=== PATIENT | male | born 1985 | race Caucasian/White ===

== ENCOUNTER 2021-12-29 19:59 | Inpatient (IN) | payer MEDICAID ==
[~2021-12-29] VITALS: Ht 185.4 cm; Wt 86.2 kg
[2021-12-29] MEDS ORDERED: LEVETIRACETAM 1000MG PREMIX 100 ML IV ONE (23:15)
[2021-12-29] MEDS ORDERED: TETANUS, DIPHTHERIA, PERTUSSIS VAC/PF 0.5ML (>10YR OLD) IM ONE (23:30)
[2021-12-29 23:46] LABS: BASOPHILS % 0.5 % (0.0-2.0); EOSINOPHILS % 0.4 % (0.0-5.0); HEMATOCRIT. 39.2 % (42.0-52.0); HEMOGLOBIN. 13.6 g/dL (14.0-18.0); LYMPHOCYTES % 24.1 % (20.0-50.0); MEAN CORPUSCULAR HEMOGLOBIN 30.1 pg (28.0-32.0); MEAN CORPUSCULAR VOLUME 86.8 fL (80.0-94.0); MEAN PLATELET VOLUME 7.9 fl (7.4-10.4); MONOCYTES % 5.6 % (2.0-8.0); NEUTROPHILS % 69.4 % (40.0-76.0); PLATELET 259 x1000/uL (130-400); RED BLOOD CELL COUNT 4.52 mill/uL (4.7-6.1); RED CELL DISTRIBUTION WIDTH 11.9 % (11.6-14.6)
[2021-12-30 00:27] LABS: CHLORIDE 102 mEq/L (98-107)
[2021-12-30] MEDS ORDERED: MIDAZOLAM HCL 2 MG/2 ML VIAL IV NR (04:00)
[2021-12-30] MEDS ORDERED: SODIUM CHLORIDE 0.9% 1,000 ML IV ONE (04:00)
[2021-12-30 09:40] VITALS: BP 135/94
[2021-12-30] MEDS ORDERED: IPRATROPIUM/ALBUTEROL 0.5-3(2.5)MG/3ML NEB NEB PRN (10:00)
[2021-12-30] MEDS ORDERED: ZOLPIDEM TARTRATE 5MG TABLET PO PRN (10:00)
[2021-12-30] MEDS ORDERED: GUAIFENESIN 200MG/10ML SUGAR FREE UDC PO PRN (10:00)
[2021-12-30] MEDS ORDERED: DOCUSATE SODIUM 100MG CAPSULE PO PRN (10:00)
[2021-12-30] MEDS ORDERED: MAGNESIUM/ALUMINUM HYDROXIDE/SIMETHICONE 30ML UDC PO PRN (10:00)
[2021-12-30] MEDS ORDERED: LORAZEPAM 2MG/ML CPJ IV PRN (10:00)
[2021-12-30] MEDS ORDERED: CLONIDINE 0.1MG TABLET PO PRN (10:00)
[2021-12-30] MEDS ORDERED: NITROGLYCERIN 0.4MG TABLET SL SL PRN (10:00)
[2021-12-30] MEDS ORDERED: ONDANSETRON HCL 4MG/2ML INJ IV PRN (10:00)
[2021-12-30] MEDS ORDERED: KETOROLAC 30MG/ML VIAL IV PRN (10:00)
[2021-12-30] MEDS ORDERED: ACETAMINOPHEN 325MG TABLET PO PRN ×2 (10:00)
[2021-12-30] MEDS: ENOXAPARIN 40MG/0.4ML SYR SUBCUT SCH (10:27)
[2021-12-30 12:00] VITALS: BP 130/85
[2021-12-30 16:00] VITALS: BP 110/75
[2021-12-30 18:12] LABS: ETHANOL BLOOD < 10 mg/dL; T4 FREE 0.82 ng/dL (0.76-1.46); TOTAL IRON BINDING CAPACITY 213 ug/dL (250-450)
[2021-12-30 18:27] LABS: VITAMIN B12 SERUM 196 pg/mL (211-911)
[2021-12-30] MEDS ORDERED: LEVE750T4 PO (19:16)
[2021-12-30 20:00] VITALS: BP 115/72
[2021-12-30 20:14] LABS: *AMPHETAMINES SCREEN URINE NEGATIVE (NEGATIVE); *BARBITURATES SCREEN URINE NEGATIVE (NEGATIVE); *BENZODIAZEPINES SCREEN URINE PRESUMTIVE POSITIVE (NEGATIVE); CANNABINOID URINE SCREEN NEGATIVE (NEGATIVE); METHADONE URINE SCREEN NEGATIVE (NEGATIVE); OPIATES URINE SCREEN NEGATIVE (NEGATIVE); PHENCYCLIDINE URINE SCREEN NEGATIVE (NEGATIVE)
[2021-12-30] MEDS: FAMOTIDINE 20MG TABLET PO SCH (20:51)
[2021-12-30] MEDS: LEVETIRACETAM 500MG/5ML CUP PO SCH (20:56)
[2021-12-30 21:34] LABS: *COCAINE SCREEN URINE PRESUMTIVE POSITIVE (NEGATIVE)
[2021-12-31] VITALS: BP 120/74
[2021-12-31 04:00] VITALS: BP 115/73
[2021-12-31 06:46] LABS: BASOPHILS % 0.5 % (0.0-2.0); EOSINOPHILS % 0.8 % (0.0-5.0); HEMATOCRIT. 38.6 % (42.0-52.0); HEMOGLOBIN. 13.5 g/dL (14.0-18.0); LYMPHOCYTES % 35.5 % (20.0-50.0); MEAN CORPUSCULAR HEMOGLOBIN 30.3 pg (28.0-32.0); MEAN PLATELET VOLUME 8.3 fl (7.4-10.4); MONOCYTES % 8.1 % (2.0-8.0); NEUTROPHILS % 55.1 % (40.0-76.0); PLATELET 241 x1000/uL (130-400); RED BLOOD CELL COUNT 4.44 mill/uL (4.7-6.1); RED CELL DISTRIBUTION WIDTH 11.6 % (11.6-14.6)
[2021-12-31 07:27] LABS: CHLORIDE 102 mEq/L (98-107)
[2021-12-31 07:50] LABS: PHOSPHORUS 3.7 mg/dL (2.5-4.9)
[2021-12-31 08:00] VITALS: BP 114/74
[2021-12-31] MEDS: LEVETIRACETAM 500MG/5ML CUP PO SCH (09:49)
[2021-12-31] MEDS: FAMOTIDINE 20MG TABLET PO SCH ×2 (09:51→21:00)
[2021-12-31] MEDS: ENOXAPARIN 40MG/0.4ML SYR SUBCUT SCH (09:51)
[2021-12-31 12:00] VITALS: BP 115/68
[2021-12-31] MEDS: LEVETIRACETAM 500MG TABLET PO SCH (19:33)
[2021-12-31 20:00] VITALS: BP 111/68
[2022-01-01] VITALS (7 sets, daily range): BP systolic 105–142; BP diastolic 65–86
[2022-01-01] MEDS: FAMOTIDINE 20MG TABLET PO SCH (09:01)
[2022-01-01] MEDS: LEVETIRACETAM 500MG TABLET PO SCH ×2 (09:01→17:23)
[2022-01-01] MEDS: ENOXAPARIN 40MG/0.4ML SYR SUBCUT SCH (10:00)
[2022-01-01] MEDS ORDERED: KEPP500 PO (11:04)
== END 2022-01-01 21:00 | disposition home or self-care (01) | DRG 53 ==
LOC: ER 19:59 → 7WST 12-30 05:34 → EDBEDREQ 12-30 06:39 → EDBEDREQTM 12-30 06:39 → ENRESERV 12-30 06:57
PROVIDERS: ADMIT Internal Medicine; ATTEND Internal Medicine
PROC: 0HQ0XZZ Repair Scalp Skin, External Approach (ICD-10-PCS; principal; 2021-12-30)
DX: G40.909 Epilepsy, unspecified, not intractable, without status epilepticus (principal); G92.8 Other toxic encephalopathy; D63.8 Anemia in other chronic diseases classified elsewhere; S01.01XA Laceration without foreign body of scalp, initial encounter; X58.XXXA Exposure to other specified factors, initial encounter; Z79.899 Other long term (current) drug therapy; Y93.89 Activity, other specified; Y92.89 Other specified places as the place of occurrence of the external cause; Y99.8 Other external cause status
CPT/HCPCS: 36415; 70551; 80053; 80185; 80305; 80320; 82607; 82746; 83540; 83550; 83735; 84100; 84439; 84443; 85025; 90715; 93005; 93970; 99285; J1650; J1953; J2250; G0480

== ENCOUNTER 2022-01-06 10:17 | Emergency (ER) | payer MEDICAID ==
[~2022-01-06] VITALS: Ht 185.4 cm; Wt 84.0 kg
[~2022-01-06 10:17] MED LIST: KEPP500 PO
[2022-01-06 11:08] VITALS: BP 126/75
== END 2022-01-06 11:09 | disposition home or self-care (01) ==
LOC: ER 10:17
DX: Z48.02 Encounter for removal of sutures (principal); R56.9 Unspecified convulsions; Z00.00 Encounter for general adult medical examination without abnormal findings; F15.10 Other stimulant abuse, uncomplicated
CPT/HCPCS: 99281; Z7610

== ENCOUNTER 2024-11-27 15:27 | Emergency (ER) | payer SELFPAY ==
[~2024-11-27] VITALS: Ht 175.3 cm; Wt 73.0 kg
[2024-11-27 15:34] VITALS: TEMP 36.6; O2SAT 98
[2024-11-27] MEDS: HALOPERIDOL LACTATE 5MG/ML VIAL IM ONE (16:30)
[2024-11-27 16:42] LABS: BASOPHILS % 0.6 % (0.0-2.0); EOSINOPHILS % 0.1 % (0.0-5.0); HEMATOCRIT. 38.5 % (42.0-52.0); HEMOGLOBIN. 13.1 g/dL (14.0-18.0); LYMPHOCYTES % 24.7 % (20.0-50.0); MEAN PLATELET VOLUME 8.6 fl (7.4-10.4); MONOCYTES % 8.9 % (2.0-8.0); NEUTROPHILS % 65.7 % (40.0-76.0); PLATELET 194 x1000/uL (130-400); RED BLOOD CELL COUNT 4.33 mill/uL (4.7-6.1); RED CELL DISTRIBUTION WIDTH 13.0 % (11.6-14.6)
[2024-11-27 16:57] LABS: CREATININE 1.0 mg/dL (0.6-1.3)
[2024-11-27 16:58] LABS: UREA NITROGEN BLOOD 22 mg/dL (9-23)
[2024-11-27 16:59] LABS: ASPARTATE AMINOTRANSFERASE 52 IU/L (<34)
[2024-11-27 17:00] LABS: BILIRUBIN DIRECT 0.5 mg/dL (<=3.0); BILIRUBIN TOTAL 1.7 mg/dL (0.1-1.0); PROTEIN TOTAL 8.0 g/dL (6.0-8.3)
[2024-11-27] MEDS: SODIUM CHLORIDE 0.9% 1,000 ML IV ONE ×2 (18:45)
[2024-11-27 20:41] VITALS: BP 115/74; PULSE 67; RESP 13; O2SAT 100
== END 2024-11-27 20:54 | disposition home or self-care (01) ==
LOC: ER 15:27
DX: G93.40 Encephalopathy, unspecified (principal); M62.82 Rhabdomyolysis; I46.9 Cardiac arrest, cause unspecified; Z79.899 Other long term (current) drug therapy
CPT/HCPCS: 80076; 80048; 80320; 82140; 82550; 85025; 36415; 70450; 96372; 99285; J1630; J7030; G0480

== ENCOUNTER 2024-12-26 08:16 | Emergency (ER) | payer OTHER ==
[~2024-12-26] VITALS: Ht 175.3 cm; Wt 75.0 kg
[2024-12-26 08:17] VITALS: O2SAT 100
[2024-12-26] MEDS: LEVETIRACETAM 1000MG PREMIX 100 ML IV ONE (09:01)
[2024-12-26 09:25] LABS: BASOPHILS % 0.2 % (0.0-2.0); EOSINOPHILS % 0.8 % (0.0-5.0); HEMATOCRIT. 43.7 % (42.0-52.0); HEMOGLOBIN. 14.7 g/dL (14.0-18.0); LYMPHOCYTES % 25.7 % (20.0-50.0); MEAN PLATELET VOLUME 8.8 fl (7.4-10.4); MONOCYTES % 6.2 % (2.0-8.0); NEUTROPHILS % 67.1 % (40.0-76.0); PLATELET 196 x1000/uL (130-400); RED BLOOD CELL COUNT 4.95 mill/uL (4.7-6.1); RED CELL DISTRIBUTION WIDTH 13.0 % (11.6-14.6)
[2024-12-26 09:41] LABS: CREATININE 0.8 mg/dL (0.6-1.3); UREA NITROGEN BLOOD 11 mg/dL (9-23)
[2024-12-26 09:42] LABS: ETHANOL BLOOD < 10 mg/dL (<10)
[2024-12-26 13:08] VITALS: BP 123/85; PULSE 73; RESP 16; TEMP 37; O2SAT 99
== END 2024-12-26 13:35 | disposition short-term general hospital (02) ==
LOC: ER 08:16 → CMPBEDREQ 14:14
DX: R56.9 Unspecified convulsions (principal); Z79.899 Other long term (current) drug therapy
CPT/HCPCS: 80048; 80320; 85025; 36415; 70450; 93005; 96374; 99285; J1953; Z7610; 82542; A4606; G0480

== ENCOUNTER 2025-01-14 13:17 | Emergency (ER) | payer OTHER ==
[~2025-01-14] VITALS: Ht 170.2 cm; Wt 80.0 kg
[2025-01-14 13:19] VITALS: O2SAT 99
[2025-01-14] MEDS: ACETAMINOPHEN 325MG TABLET PO ONE (13:45)
[2025-01-14] MEDS: LEVETIRACETAM 1000MG PREMIX 100 ML IV ONE (14:09)
[2025-01-14 16:43] LABS: BASOPHILS % 1.0 % (0.0-2.0); CREATININE 0.8 mg/dL (0.6-1.3); EOSINOPHILS % 0.7 % (0.0-5.0); HEMATOCRIT. 41.6 % (42.0-52.0); HEMOGLOBIN. 14.2 g/dL (14.0-18.0); LYMPHOCYTES % 35.1 % (20.0-50.0); MEAN PLATELET VOLUME 9.8 fl (7.4-10.4); MONOCYTES % 5.9 % (2.0-8.0); NEUTROPHILS % 57.3 % (40.0-76.0); PLATELET 190 x1000/uL (130-400); RED BLOOD CELL COUNT 4.68 mill/uL (4.7-6.1); RED CELL DISTRIBUTION WIDTH 12.1 % (11.6-14.6)
[2025-01-14 16:44] LABS: UREA NITROGEN BLOOD 13 mg/dL (9-23)
[2025-01-14 16:45] LABS: ASPARTATE AMINOTRANSFERASE 18 IU/L (<34); BILIRUBIN DIRECT 0.2 mg/dL (<=3.0); ETHANOL BLOOD < 10 mg/dL (<10)
[2025-01-14 16:47] LABS: BILIRUBIN TOTAL 0.6 mg/dL (0.1-1.0); PROTEIN TOTAL 7.2 g/dL (6.0-8.3)
[2025-01-14 20:02] VITALS: BP 114/80; PULSE 78; RESP 15; TEMP 36.9; O2SAT 98
== END 2025-01-14 20:03 | disposition home or self-care (01) ==
LOC: ER 13:20
DX: S00.31XA Abrasion of nose, initial encounter (principal); G40.909 Epilepsy, unspecified, not intractable, without status epilepticus; Z79.899 Other long term (current) drug therapy; X58.XXXA Exposure to other specified factors, initial encounter; Y93.89 Activity, other specified; Y92.89 Other specified places as the place of occurrence of the external cause; Y99.8 Other external cause status
CPT/HCPCS: 80076; 80048; 80320; 85025; 36415; 70450; 70486; 72125; 93005; 96365; 99285; J1953; G0480

== ENCOUNTER 2025-01-16 13:43 | Emergency (ER) | payer SELFPAY ==
[~2025-01-16] VITALS: Ht 175.3 cm; Wt 65.0 kg
[2025-01-16 13:45] VITALS: O2SAT 98
[2025-01-16] MEDS: LIDOCAINE 5% PATCH TOP SCH (14:48)
[2025-01-16] MEDS: IBUPROFEN 400MG TABLET PO ONE (14:48)
[2025-01-16] MEDS ORDERED: KEPP500 MT (16:12)
[2025-01-16 16:15] VITALS: BP 128/88; PULSE 69; RESP 16; TEMP 36.9; O2SAT 99
== END 2025-01-16 16:30 | disposition home or self-care (01) ==
LOC: ER 13:43
DX: S39.012A Strain of muscle, fascia and tendon of lower back, initial encounter (principal); Z76.0 Encounter for issue of repeat prescription; Z79.899 Other long term (current) drug therapy; W06.XXXA Fall from bed, initial encounter; Y93.89 Activity, other specified; Y92.89 Other specified places as the place of occurrence of the external cause; Y99.8 Other external cause status
CPT/HCPCS: 72100; 99283

== ENCOUNTER 2025-02-10 14:39 | Emergency (ER) | payer OTHER ==
[~2025-02-10] VITALS: Ht 172.7 cm; Wt 75.0 kg
[~2025-02-10 14:39] MED LIST changes: +KEPP500 MT
[2025-02-10 14:42] VITALS: O2SAT 99
[2025-02-10 16:29] LABS: BASOPHILS % 0.7 % (0.0-2.0); EOSINOPHILS % 1.6 % (0.0-5.0); HEMATOCRIT. 41.5 % (42.0-52.0); HEMOGLOBIN. 14.1 g/dL (14.0-18.0); LYMPHOCYTES % 31.4 % (20.0-50.0); MEAN PLATELET VOLUME 9.0 fl (7.4-10.4); MONOCYTES % 7.2 % (2.0-8.0); NEUTROPHILS % 59.1 % (40.0-76.0); PLATELET 233 x1000/uL (130-400); RED BLOOD CELL COUNT 4.74 mill/uL (4.7-6.1); RED CELL DISTRIBUTION WIDTH 12.0 % (11.6-14.6)
[2025-02-10 16:39] LABS: CREATININE 0.9 mg/dL (0.6-1.3); UREA NITROGEN BLOOD 10 mg/dL (9-23)
[2025-02-10 19:45] LABS: CLARITY URINE CLEAR (CLEAR); COLOR URINE YELLOW (YELLOW); GLUCOSE URINE NEGATIVE (NEGATIVE); KETONES URINE NEGATIVE (NEGATIVE); LEUKOCYTE ESTERASE URINE NEGATIVE (NEGATIVE); NITRITE URINE NEGATIVE (NEGATIVE); OCCULT BLOOD URINE NEGATIVE (NEGATIVE); PH URINE 7.0 (4.5-8.0); PROTEIN URINE NEGATIVE (NEGATIVE); SPECIFIC GRAVITY URINE 1.013 (1.005-1.030); UROBILINOGEN URINE 0.2 E.U./dL (0.2-1.0)
[2025-02-11] MEDS ORDERED: AMOX1TAB16 MT (00:31)
[2025-02-11] MEDS ORDERED: KEPP500 MT (00:31)
[2025-02-11] MEDS ORDERED: MUPI1OIN4 TP (00:33)
[2025-02-11 02:00] VITALS: BP 137/83; PULSE 82; RESP 20; TEMP 36.7; O2SAT 99
== END 2025-02-11 03:00 | disposition home or self-care (01) ==
LOC: ER 14:39
DX: G40.909 Epilepsy, unspecified, not intractable, without status epilepticus (principal); Z79.899 Other long term (current) drug therapy
CPT/HCPCS: 36415; 70486; 80048; 81003; 85025; 93005; 99284

== ENCOUNTER 2025-02-11 09:34 | Emergency (ER) | payer MEDICAID, OTHER ==
[~2025-02-11] VITALS: Ht 175.3 cm; Wt 81.0 kg
[2025-02-11 09:34] VITALS: O2SAT 97
[~2025-02-11 09:34] MED LIST changes: +AMOX1TAB16 MT; +MUPI1OIN4 TP
[2025-02-11] MEDS: LEVETIRACETAM 1000MG PREMIX 100 ML IV ONE (10:25)
[2025-02-11 10:47] LABS: BASOPHILS % 0.8 % (0.0-2.0); EOSINOPHILS % 0.1 % (0.0-5.0); HEMATOCRIT. 41.1 % (42.0-52.0); HEMOGLOBIN. 13.9 g/dL (14.0-18.0); LYMPHOCYTES % 16.7 % (20.0-50.0); MEAN PLATELET VOLUME 9.6 fl (7.4-10.4); MONOCYTES % 5.6 % (2.0-8.0); NEUTROPHILS % 76.8 % (40.0-76.0); PLATELET 231 x1000/uL (130-400); RED BLOOD CELL COUNT 4.72 mill/uL (4.7-6.1); RED CELL DISTRIBUTION WIDTH 12.3 % (11.6-14.6)
[2025-02-11 11:15] LABS: CREATININE 0.7 mg/dL (0.6-1.3); UREA NITROGEN BLOOD 9 mg/dL (9-23)
[2025-02-11 11:16] LABS: ETHANOL BLOOD < 10 mg/dL (<10)
[2025-02-11 12:50] VITALS: BP 132/82; PULSE 85; RESP 14; TEMP 36.4; O2SAT 100
== END 2025-02-11 13:18 | disposition admitted as inpatient to this hospital (09) ==
LOC: ER 09:34 → EDBEDREQ 09:51 → CANBEDREQ 11:32 → ER 13:18
DX: S02.2XXA Fracture of nasal bones, initial encounter for closed fracture (principal); G40.909 Epilepsy, unspecified, not intractable, without status epilepticus; I48.91 Unspecified atrial fibrillation; Z79.899 Other long term (current) drug therapy; Z87.891 Personal history of nicotine dependence; X58.XXXA Exposure to other specified factors, initial encounter; Y93.89 Activity, other specified; Y92.89 Other specified places as the place of occurrence of the external cause; Y99.8 Other external cause status
CPT/HCPCS: 80048; 80320; 85025; 36415; 70450; 70486; 93005; 96365; 99285; J1953; G0480